=== PATIENT | male | born 1955 | race Caucasian/White ===

== ENCOUNTER 2018-12-14 19:32 | Emergency (ER) | payer OTHER ==
[2018-12-14] MEDS: IBUPROFEN 600 MG TAB PO (20:15)
[2018-12-14] MEDS ORDERED: SOD CHLORIDE 0.9% 500 ML IV (20:41)
== END 2018-12-14 20:25 | disposition left against medical advice (07) ==
LOC: E/R 19:32
DX: R53.1 Weakness (principal); F17.210 Nicotine dependence, cigarettes, uncomplicated
CPT/HCPCS: 99283; J7040